=== PATIENT | female | born 1985 | race Two or more races ===

== ENCOUNTER 2024-11-10 08:52 | Inpatient (IN) | payer OTHER ==
[2024-11-10 09:02] VITALS: BMI 32.0
[2024-11-10] MEDS ORDERED: ACETAMINOPHEN INJECTION 100 ML ONE (09:32)
[2024-11-10] MEDS: ACETAMINOPHEN 1000 MG/100 ML BAG IVPB ONE (09:44)
[2024-11-10 09:47] LABS: ABSOLUTE IMMATURE GRANULOCYTES 0.02 x10^3/uL (0.0-0.031); BASOPHILS # 0.03 x10^3/uL (0.01-0.08); EOSINOPHIL % 1.9 % (0.7-5.8); EOSINOPHILS # 0.15 x10^3/uL (0.04-0.36); HEMATOCRIT 39.1 % (34.1-44.9); HEMOGLOBIN 12.9 g/dL (11.2-15.7); MEAN CELL VOLUME 87.5 fl (79.4-94.8); MEAN PLT VOLUME 8.7 fl (9.4-12.3); MONOCYTE # 0.81 x10^3/uL (0.24-0.86); MONOCYTE % 10.1 % (4.7-12.5); PLATELET COUNT 263 x10^3/uL (182-369); RDW 12.6 % (12.1-16.8)
[2024-11-10 09:50] LABS: PH,URINE 5.5 (5.0-8.0); URINE APPEARANCE CLEAR; URINE BILIRUBIN NEGATIVE (NEGATIVE); URINE COLOR YELLOW; URINE GLUCOSE (UA) NEGATIVE (NEGATIVE); URINE KETONE NEGATIVE (NEGATIVE); URINE LEUK ESTERASE NEGATIVE (NEGATIVE); URINE NITRITE NEGATIVE (NEGATIVE); URINE PROTEIN NEGATIVE (NEGATIVE); URINE UROBILINOGEN 0.2 mg/dL (0.2-1.0)
[2024-11-10 09:53] LABS: HCG,QUALITATIVE URINE Negative
[2024-11-10 09:54] LABS: INR 1.1 (0.83-1.09); PROTHROMBIN TIME (PATIENT) 12.1 SEC (9.7-13.0)
[2024-11-10 09:57] LABS: ACTIVATED PTT 32.5 SECONDS (25.2-36.5)
[2024-11-10 10:08] LABS: POTASSIUM 4.3 mmol/L (3.5-5.1)
[2024-11-10 10:10] LABS: CALCIUM 8.9 mg/dL (8.5-10.1)
[2024-11-10 10:11] LABS: ALBUMIN 3.4 g/dl (3.4-5.0); BLOOD UREA NITROGEN 13.4 mg/dL (7-18); MAGNESIUM 1.7 mg/dL (1.8-2.4)
[2024-11-10 10:13] LABS: CREATININE 0.5 mg/dL (0.55-1.3)
[2024-11-10 10:15] LABS: TOT PROT 6.6 g/dl (6.4-8.2)
[2024-11-11 07:27] LABS: ABSOLUTE IMMATURE GRANULOCYTES 0.01 x10^3/uL (0.0-0.031); BASOPHILS # 0.02 x10^3/uL (0.01-0.08); EOSINOPHIL % 3.5 % (0.7-5.8); EOSINOPHILS # 0.23 x10^3/uL (0.04-0.36); HEMATOCRIT 38.2 % (34.1-44.9); HEMOGLOBIN 12.2 g/dL (11.2-15.7); MCHC 31.9 g/dl (32.2-35.5); MEAN CELL VOLUME 86.4 fl (79.4-94.8); MONOCYTE # 0.69 x10^3/uL (0.24-0.86); MONOCYTE % 10.5 % (4.7-12.5); PLATELET COUNT 266 x10^3/uL (182-369); RDW 12.4 % (12.1-16.8)
[2024-11-11 07:46] LABS: POTASSIUM 4.5 mmol/L (3.5-5.1)
[2024-11-11 07:51] LABS: ALBUMIN 3.1 g/dl (3.4-5.0); CALCIUM 8.9 mg/dL (8.5-10.1)
[2024-11-11 07:52] LABS: BLOOD UREA NITROGEN 17.4 mg/dL (7-18)
[2024-11-11 07:55] LABS: BILIRUBIN,TOTAL 1.1 mg/dL (0.2-1); CREATININE 0.5 mg/dL (0.55-1.3)
[2024-11-11 07:56] LABS: TOT PROT 6.4 g/dl (6.4-8.2)
[2024-11-11 09:15] LABS: MAGNESIUM 1.9 mg/dL (1.8-2.4)
[2024-11-11] MEDS ORDERED: HEPARIN NA (PORCINE) 5,000 UNITS/ML 1ML VIAL IVPUSH PRN ×2 (11:19)
[2024-11-11] MEDS: ASPIRIN 81 MG CHEWABLE TABLETS PO SCH (11:41)
[2024-11-11 12:04] LABS: INR 1.07 (0.83-1.09); PROTHROMBIN TIME (PATIENT) 11.7 SEC (9.7-13.0)
[2024-11-11 12:07] LABS: ACTIVATED PTT 31.7 SECONDS (25.2-36.5)
[2024-11-11] MEDS: HEPARIN NA (PORCINE) 5,000 UNITS/ML 1ML VIAL IVPUSH ONE (12:28)
[2024-11-11] MEDS: HEPARIN SOD,PORK IN 0.45% NACL 25,000 UNITS/500 ML INFUS.BAG IVPB SCH (12:29)
[2024-11-11 18:57] VITALS: BP 135/73; PULSE 100; RESP 17; TEMP 98.5
== END 2024-11-11 20:01 | disposition short-term general hospital (02) | DRG 282 ==
LOC: JER 08:52 → JERBED 14:23 → OBSVTOIN 17:08 → J4S 17:08
PROVIDERS: ADMIT Internal Medicine; ATTEND Physician Assistant
DX: I21.4 Non-ST elevation (NSTEMI) myocardial infarction (principal); I10 Essential (primary) hypertension; E83.42 Hypomagnesemia; R00.0 Tachycardia, unspecified
CPT/HCPCS: 0241U-QW; 36415; 71045-TC-FY; 71275-TC; 80053; 80061; 81003; 83036; 83735; 84436; 84439; 84443; 84479; 84484; 84703; 85025; 85379; 85610; 85730; 93005; 93010; 93970-TC; 99291; G0378; J0131; J1644